=== PATIENT | female | born 1980 | race Two or more races ===

== ENCOUNTER 2017-04-23 23:47 | Emergency (ER) | payer SELFPAY ==
[2017-04-24 01:46] LABS: Add Diff/Slide Review? Slide Review Added; Comments Flag Yes; Hematocrit 40 % (35-47); Hemoglobin 12.3 g/dl (12.0-16.0); Mean Corpuscular HGB Conc 31 g/dl (31-36); Mean Corpuscular Hemoglobin 21 pg (27-31); Mean Corpuscular Volume 67 fL (80-97); Mean Platelet Volume 9 um3 (7.4-10.4); Red Blood Count 5.95 10^6/ul (4.0-5.4); Red Cell Distribution Width 14 % (10.5-15); White Blood Count 5.5 10^3/ul (3.5-10.8)
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
[2017-04-24 02:20] LABS: Acetaminophen < 15 mcg/mL; Alcohol < 10 mg/dL (<10); Lithium < 0.10 mmol/L (0.6-1.2); Salicylate < 2.50 mg/dL (<30); Valproic Acid < 13.0 mcg/mL (50-100)
[2017-04-24 02:22] LABS: Microcytosis 2+
[2017-04-24 02:23] LABS: ALT 16 U/L (7-52); AST 20 U/L (13-39); Albumin 4.1 g/dL (3.2-5.2); Alkaline Phosphatase 42 U/L (34-104); Anion Gap 5 mmol/L (2-11); BUN/Creatinine Ratio 12.5 (8-20); Blood Urea Nitrogen 9 mg/dL (6-24); CO2 Carbon Dioxide 30 mmol/L (22-32); Chloride 101 mmol/L (101-111); EGFR African American 116.6 (>60); EGFR Non-African American 90.7 (>60); Glucose 88 mg/dL (70-100); Hypochromasia 1+; Platelet Morphology Large; Potassium 3.4 mmol/L (3.5-5.0); Sodium 136 mmol/L (133-145); Total Protein 7.1 g/dL (6.4-8.9)
[2017-04-24 02:24] LABS: Add Path Review? YES
[2017-04-24 03:41] LABS: Uric Acid 2.7 mg/dL (2.3-6.6)
[2017-04-24 08:06] LABS: Urine Bilirubin Negative (Negative); Urine Glucose Negative (Negative); Urine Nitrite Negative (Negative)
--- NOTE | 2017-04-24 08:15 | RAD ---
HISTORY: Right great toe pain COMPARISONS: None VIEWS: 3, Frontal, lateral, and oblique views of the first digit of the right foot FINDINGS: BONE DENSITY: Normal. BONES: There is no displaced fracture. JOINTS: There is no arthropathy. ALIGNMENT: There is no dislocation. SOFT TISSUES: Unremarkable. OTHER FINDINGS: None. IMPRESSION: NO ACUTE OSSEOUS INJURY. IF SYMPTOMS PERSIST, RECOMMEND REPEAT IMAGING.
[2017-04-24 08:40] LABS: Benzodiazepine Urine Screen None Detected (None Detect)
[2017-04-24] MEDS ORDERED: LORazepam INJ* 2 MG/ML 1 ML VIAL IV PUSH ONE (11:36)
[2017-04-24] MEDS ORDERED: Midazolam* 1 MG/ML 2 ML VIAL (2 MG) IV ONE (12:14)
[2017-04-24] MEDS ORDERED: Midazolam* 1 MG/ML 2 ML VIAL (2 MG) ONE (12:15)
--- NOTE | 2017-04-24 13:09 | RAD ---
Indication: Altered mental status. Comparison: No relevant prior exams available on the [facility] PACS for comparison. Technique: Noncontrast CT vertex of skull through foramen magnum. Report: The sulci, ventricles, and basal cisterns are normal for age. Barcenas matter white matter differentiation is preserved without evidence for edema. No intra or extra axial hemorrhage, mass, or fluid collection detected. Unremarkable visualized orbital contents. Unremarkable calvarium and skull base. Small nodule at the RIGHT medial para midline posterior scalp with subtle foci of calcification likely represents a sebaceous cyst. The visualized paranasal sinuses and mastoid air spaces are clear. IMPRESSION: Negative unenhanced CT of the brain.
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
[2017-04-24 17:45] VITALS: BP 99/70
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
--- NOTE | 2017-04-25 16:23 | ED ---
Channing Luo Angela, scribed for Alejandro Pickens MD on 04/24/17 at 0927 . Progress - Progress Note Progress Note: This pt was signed out at shift change, pending disposition, awaiting neurology consult. On re-evaluation at 0915, pt states she is feeling fine. 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 Physical Exam: Vital Signs Reviewed: Yes Appearance: Positive: No Pain Distress, Well-Nourished Skin: Positive: Warm, Dry - multiple areas of ecchymosis over LE's (anterior and posterior aspect) - no edema, NTTP - no palpable FB's; no track boone nor areas of picking or scratching observed Head/Face: Positive: Normal Head/Face Inspection, Scalp - 3mm area of firm, well defined nodular mass along posterior scalp - no erythema, no bogginess, no ecchymosis, no overlying abrasion - NTTP (may be epidermal cyst?) Eyes: Positive: Normal, EOMI, Conjunctiva Clear ENT: Positive: Hearing grossly normal, Pharyngeal erythema - mucosa moist. Negative: Nasal congestion, Nasal drainage, Trismus, Muffled/hoarse voice Dental: Positive: Other - partially edentulous Neck: Positive: Supple Respiratory/Lung Sounds: Positive: Clear to Auscultation, Breath Sounds Present. Negative: Rales, Rhonchi, Wheezes Cardiovascular: Positive: Normal, RRR, Pulses are Symmetrical in both Upper and Lower Extremities, S1, S2. Negative: Murmur, Rub, Leg Edema Left, Leg Edema Right Abdomen Description: Positive: Nontender, Soft Bowel Sounds: Positive: Present Musculoskeletal: Positive: Other - skewed d/t Cleves's Chorea Neurological: Positive: CN Intact II-III, Other - pt has persistent rhythmic movements of UE's and LE's as well as core when in a dependent position - difficulty remaining still; oriented to person - unclear about orientation to place and time as she's vague when aswering specific questions - this could be that she's withholding information for personal gain or she genuinely does not have the capacity to recognize/recall this information at this time; her gait is also arrhythmic however she is able to coordinate herself to ambulate down the to and back - limbs do not appear weightless Psychiatric: Positive: Other - calm, cooperative, pleasant; does not appear to have FB implanted in superficial skin area as she mentioned during HPI - unsure if this concern is real or a delusion but feel the latter is most true; some answers pt provides are vague 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 - Results/Orders Results/Orders: Brain CT, per radiologist: IMPRESSION: Negative unenhanced CT of the brain. ED physician has reviewed this radiology report and agrees. Re-Evaluation - Re-Evaluation First Eval Re-Evaluation Time: 09:15 Comment: Pt notes she feels fine. Second Eval Re-Evaluation Time: 10:00 Comment: Pt is currently working on her computer. Third Eval Re-Evaluation Time: 11:00 Comment: Pt is resting with involuntary movements. Fourth Eval Re-Evaluation Time: 12:00 Comment: Pt is still resting with involuntary movements. Fifth Eval Re-Evaluation Time: 13:00 Comment: The pt was obtunded secondary to medication for sedation. Sixth + Eval Re-Evaluation Time: 15:18 Comment: Pt is having an agitation episode. 7th eval Re-Evaluation Time: 16:40 Comment: Dr. Ott saw and examined the pt. The pt is back to baseline. He spoke with the pt's father, who reported this is her baseline. Father reports the pt is psychotic, bipolar, and not adhering to her medications. Dr. Ott is willing to admit the pt but the pt refuses. At this point, I will page the psychiatrist to do a mental health evaluation. 8th eval Re-Evaluation Time: 17:14 Comment: Dr. López came to the ED to evaluate the pt. He recommends the pt should be discharged home as there are no psychiatric component for involuntary admission. Course/Dx - Course Course Of Treatment: This pt was signed out at shift change, pending disposition , awaiting neurology consult. I did multiple re-evaluations on the pt. Dr. Ott saw and examined the pt. The pt is back to baseline. He spoke with the pt 's father, who reported this is her baseline. Father reports the pt is psychotic , bipolar, and not adhering to her medications. Dr. Ott is willing to admit the pt but the pt refuses. At this point, I will page the psychiatrist to do a mental health evaluation. Dr. López came to the ED to evaluate the pt. He recommends the pt should be discharged home as there are no psychiatric component for involuntary admission. 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 - Diagnoses Provider Diagnoses: Cleves's chorea - Provider Notifications Discussed Care Of Patient With: Dylan Renee Time Discussed With Above Provider: 11:35 Instructed by Provider To: Other - I discussed the case with Dr. Renee. He came and consulted with the pt. He reports it is a bizarre complaint. Dr. Renee thinks it is a psychiatric complaint and the pt doesn't need an MRI. He recommends a head CT and beta hcg. [16:40] I spoke with Dr. Ott who is willing to admit the pt but the pt refuses. [16:48] I paged Dr. López to do a mental health evaluation. The documentation as recorded by the Channing martinez Angela accurately reflects the service I personally performed and the decisions made by me, Alejandro Pickens MD.
== END 2017-04-24 17:43 ==
LOC: ED 23:47
DX: F22 Delusional disorders (principal); G10 Huntington's disease; M79.674 Pain in right toe(s); Z32.02 Encounter for pregnancy test, result negative; Z04.8 Encounter for examination and observation for other specified reasons; R23.3 Spontaneous ecchymoses; R22.0 Localized swelling, mass and lump, head; D64.9 Anemia, unspecified
CPT/HCPCS: 36415; 70450; 80053; 80164; 80178; 80307; 80320; 80329; 81003; 84443; 84550; 84702; 85025; 85060; 96374; 96375; 99285; G0480; J2060; J2250

== ENCOUNTER → 2017-04-24 23:02 | Emergency (ER) | payer SELFPAY ==
--- NOTE | 2017-04-25 09:09 | ED ---
Niles Lou Rebecca, scribed for Ramesh Saldivar MD on 04/24/17 at 2359 . Complex/Multi-Sys Presentation - HPI Summary HPI Summary: Pt is a 36 y/o F BIBA accompanied by police as a 2209 who presents to ED with no complaints. The pt was D/C from [facility] earlier today and states that she had gone home and went to bed. Reports that she went to the bathroom and "then the mental health associate were like knocking" and asked if she was doing drugs or anything illegal, which she denied. Pt states "I do not think I need to be here again." Pt reports she is visiting the area from [place], but she has friends throughout the area. PMHx Maile's chorea. - History Of Current Complaint Chief Complaint: EDSubstanceAbuse Hx Obtained From: Patient Onset/Duration: Resolved Severity Currently: None Location: Negative Aggravating Factor(s): Nothing Alleviating Factor(s): Nothing Associated Signs And Symptoms: Positive: Other - No complaints - Allergies/Home Medications Allergies/Adverse Reactions: Allergies Allergy/AdvReac Type Severity Reaction Status Date / Time No Known Allergies Allergy Verified 04/24/17 00:43 PMH/Surg Hx/FS Hx/Imm Hx Endocrine/Hematology History: Reports: Hx Anemia - not taking supplements at this time Denies: Hx Anticoagulant Therapy, Hx Blood Disorders Cardiovascular History: Denies: Hx Congenital Heart Disease, Hx Hypertension Respiratory History: Denies: Hx Asthma Sensory History: Reports: Hx Contacts or Glasses Opthamlomology History: Reports: Hx Contacts or Glasses Neurological History: Reports: Other Neuro Impairments/Disorders - [place]'s Chorea Psychiatric History: Reports: Hx Post Traumatic Stress Disorder - no meds, no counseling Infectious Disease History: Reports: History Other Infectious Disease - HPV Denies: Traveled Outside the [place] in Last 30 Days - Family History Known Family History: Positive: Other - mom- [place]ot's chorea - Social History Alcohol Use: None Hx Substance Use: Yes - nothing currently Substance Use Type: Reports: Cocaine Hx Tobacco Use: No Smoking Status (MU): Never Smoked Tobacco Review of Systems Constitutional: Negative Eyes: Negative ENT: Negative Cardiovascular: Negative Respiratory: Negative Gastrointestinal: Negative Genitourinary: Negative Musculoskeletal: Negative Skin: Negative Neurological: Negative Positive: Other - No complaints All Other Systems Reviewed And Are Negative: Yes Physical Exam - Summary Physical Exam Summary: Appearance: Well-appearing, Well-nourished, NAD Skin: Warm Eyes: Normal ENT: Normal Neck: Supple, nontender Respiratory: Clear to auscultation Cardiovascular: Normal Abdomen: Soft, nontender Bowel: Present Musculoskeletal: Normal, Strength/ROM Intact Neurological: A&Ox3, Generalized choreal movements Psychiatric: Normal Triage Information Reviewed: Yes Vital Signs Reviewed: Yes - [place] Coma Scale Coma Scale Total: 15 Complex Multi-Symp Course/Dx Course Of Treatment: in no acute distress, awaiting social work consultation. Assessment/Plan: pt was brought in by police yesterday, neurology and mental health consultations appreciated, pt was discharged and brought in today again by police. No changes in mental status. Pt has no complaints, denies any SI/HI or substance use. Pt has exhibited similar behavior in the past according to her family. - Diagnoses Provider Diagnoses: Huntingtons chorea Discharge - Discharge Plan Condition: Stable Disposition: HOME Referrals: Non Staff,Doctor [Primary Care Provider] - Karen WHATLEY,Leon [Medical Doctor] - Additional Instructions: PLEASE MAKE AN APPOINTMENT FIRST THING IN THE MORNING TO BE SEEN BY A NEUROLOGIST WITHIN 1 WEEK PLEASE RETURN TO THE EMERGENCY ROOM IF YOU HAVE ANY WORSENING OR CONCERNING SYMPTOMS The documentation as recorded by the Niles martinez Rebecca accurately reflects the service I personally performed and the decisions made by me, Ramesh Saldivar MD.
[2017-04-25 10:14] VITALS: BP 133/97
== END | disposition home or self-care (01) ==
LOC: ED 23:02
DX: G10 Huntington's disease (principal)
CPT/HCPCS: 99283

== ENCOUNTER 2017-04-25 16:15 | Emergency (ER) | payer SELFPAY ==
[2017-04-25 16:52] VITALS: BP 126/50
--- NOTE | 2017-04-25 20:59 | ED ---
Progress - Progress Note Progress Note: in no acute distress, alert and oriented, has decision making capacity, I spoke with social services aide who agrees with plan for discharge Course/Dx - Diagnoses Provider Diagnoses: Routine medical exam
--- NOTE | 2017-04-26 19:01 | ED ---
Parvin Luo Thomas, scribed for Alejandro Pickens MD on 04/25/17 at 1710 . Psychiatric Complaint - HPI Summary HPI Summary: The pt is a 36 y/o F BIB police to the emergency department. She was a patient at [facility] ED twice in the last two days. She says that her time at [facility] ED has been a complete waste of her time because every time she is discharged, people call the police and she is forced to return to the ED. She says this is myself as I ve been for the last couple of years. Today, she was brought into the ED because she was found at [facility] wearing only a bikini. However, per EMS documentation, she was naked from the waist up. Previous to that, the patient was at the [employer] for the [employer]. She was also told to go to a house of people with disabilities, but due to needing wifi, she did not go. Pt denies SI and HI. She wants to leave the ED. - History Of Current Complaint Chief Complaint: EDMentalHealth Time Seen by Provider: 04/25/17 16:36 Hx Obtained From: Patient, EMS - BIB police Onset/Duration: Still Present Timing: Constant Aggravating Factor(s): Other - Unknown Alleviating Factor(s): Other - Unknown Has Suicidal: Denies: Thoughts Has Homicidal: Denies: Thoughts Recent Stressor(s): Unknown - Allergies/Home Medications Allergies/Adverse Reactions: Allergies Allergy/AdvReac Type Severity Reaction Status Date / Time No Known Allergies Allergy Verified 04/24/17 00:43 PMH/Surg Hx/FS Hx/Imm Hx Previously Healthy: No Endocrine/Hematology History: Reports: Hx Anemia - not taking supplements at this time Denies: Hx Anticoagulant Therapy, Hx Blood Disorders Cardiovascular History: Denies: Hx Congenital Heart Disease, Hx Hypertension Respiratory History: Denies: Hx Asthma Sensory History: Reports: Hx Contacts or Glasses Opthamlomology History: Reports: Hx Contacts or Glasses Neurological History: Reports: Other Neuro Impairments/Disorders - [place]'s Chorea Psychiatric History: Reports: Hx Post Traumatic Stress Disorder - no meds, no counseling Infectious Disease History: No Infectious Disease History: Reports: History Other Infectious Disease - HPV Denies: Traveled Outside the [place] in Last 30 Days - Family History Known Family History: Positive: Other - mom- [place]'s chorea - Social History Alcohol Use: None Hx Substance Use: Yes - nothing currently Substance Use Type: Reports: Cocaine Hx Tobacco Use: No Smoking Status (MU): Never Smoked Tobacco Review of Systems Negative: Fever Psychological: Other - NEGATIVE: SI, HI All Other Systems Reviewed And Are Negative: Yes Physical Exam - Summary Physical Exam Summary: Vital Signs Reviewed: Yes Appearance: Positive: No Pain Distress, Well-Nourished Skin: Positive: Warm, Dry - multiple areas of ecchymosis over LE's (anterior and posterior aspect) - no edema, NTTP - no palpable FB's; no track boone nor areas of picking or scratching observed Head/Face: Positive: Normal Head/Face Inspection, Scalp - 3mm area of firm, well defined nodular mass along posterior scalp - no erythema, no bogginess, no ecchymosis, no overlying abrasion - NTTP (may be epidermal cyst?) Eyes: Positive: Normal, EOMI, Conjunctiva Clear ENT: Positive: Hearing grossly normal, Pharyngeal erythema - mucosa moist. Negative: Nasal congestion, Nasal drainage, Trismus, Muffled/hoarse voice Dental: Positive: Other - partially edentulous Neck: Positive: Supple Respiratory/Lung Sounds: Positive: Clear to Auscultation, Breath Sounds Present. Negative: Rales, Rhonchi, Wheezes Cardiovascular: Positive: Normal, RRR, Pulses are Symmetrical in both Upper and Lower Extremities, S1, S2. Negative: Murmur, Rub, Leg Edema Left, Leg Edema Right Abdomen Description: Positive: Nontender, Soft Bowel Sounds: Positive: Present Musculoskeletal: Positive: Other - skewed d/t Kendrick's Chorea Neurological: Positive: CN Intact II-III, Other - pt has persistent rhythmic movements of UE's and LE's as well as core when in a dependent position - difficulty remaining still; oriented to person - unclear about orientation to place and time as she's vague when aswering specific questions - this could be that she's withholding information for personal gain or she genuinely does not have the capacity to recognize/recall this information at this time; her gait is also arrhythmic however she is able to coordinate herself to ambulate down the to and back - limbs do not appear weightless Psychiatric: Positive: Other - calm, cooperative, pleasant; does not appear to have FB implanted in superficial skin area as she mentioned during HPI - unsure if this concern is real or a delusion but feel the latter is most true; some answers pt provides are vague Triage Information Reviewed: Yes Vital Signs On Initial Exam: Initial Vitals Temp Pulse Resp BP Pulse Ox 98.1 F 91 16 126/50 99 04/25/17 16:20 04/25/17 16:20 04/25/17 16:20 04/25/17 16:20 04/25/17 16:20 Vital Signs Reviewed: Yes - [place] Coma Scale Coma Scale Total: 15 Diagnostics - Vital Signs Vital Signs Temp Pulse Resp BP Pulse Ox 04/25/17 16:20 98.1 F 91 16 126/50 99 - Laboratory Lab Statement: Any lab studies that have been ordered have been reviewed, and results considered in the medical decision making process. Course/Dx - Course Assessment/Plan: The pt is a 36 y/o F BIB police to the emergency department. She was a patient at [facility] twice in the last two days. She says that her time at [facility] has been a complete waste of her time because every time she is discharged, people call the police and she is forced to return to the ED. She says this is myself as Jenny been for the last couple of years. Today, she was brought into the ED because she was found at [facility] wearing only a bikini. However, per EMS documentation, she was naked from the waist up. Previous to that, the [facility] [place] [facility] [place] [employer]. She was also told to go to a house of people with disabilities, but due to needing wifi, she did not go. Pt denies SI and HI. She wants to leave the ED. The patient is at her baseline. I have seen her in the last two days and she is still alert and oriented x3 with normal cognition. However, the patient has involuntary movements secondary to Huntingtons chorea. The patient has normal thought processes. She is cognitively intact and responds to questions appropriately. Therefore, she will be discharged home with follow up by her primary care provider. Social work is consulting with her concerning alternatives where the patient can stay. The patient will be signed out to Dr. Saldivar pending the social work consult. - Differential Dx/Clinical Impression Provider Diagnosis: Routine medical exam Discharge - Discharge Plan Condition: Stable Disposition: OTHER Discharge Disposition Comment: Sign out to [facility] pending social work consult. Referrals: [facility] PHYSICIAN REFERRAL [Outside] Additional Instructions: Use the [facility] Physician Referral Service to find a primary care physician and make an appointment. The documentation as recorded by the Parvin martinez Thomas accurately reflects the service I personally performed and the decisions made by me, Alejandro Pickens MD.
== END 2017-04-26 12:40 ==
LOC: ED 16:15
DX: Z00.00 Encounter for general adult medical examination without abnormal findings (principal)
CPT/HCPCS: 99282

== ENCOUNTER 2017-04-30 01:48 | Emergency (ER) | payer SELFPAY ==
[2017-04-30 01:50] VITALS: BP 116/64
--- NOTE | 2017-04-30 02:21 | ED ---
Lower Extremity - HPI Summary HPI Summary: 36F presents with left great toe pain today. She states she woke up with the pain. She states might be splinter in area but no injury. Does not remember stepping on anything. no edema or erythema to joint. no history of gout. no fever. is not diabetic. no wound to area. has not tried anything for pain. pain is 3/10. states hurts to walk on area. - History of Current Complaint Chief Complaint: EDExtremityLower Stated Complaint: TOE PAIN Time Seen by Provider: 04/30/17 01:51 Pain Intensity: 6 - Allergies/Home Medications Allergies/Adverse Reactions: Allergies Allergy/AdvReac Type Severity Reaction Status Date / Time No Known Allergies Allergy Verified 04/24/17 00:43 PMH/Surg Hx/FS Hx/Imm Hx Endocrine/Hematology History: Reports: Hx Anemia - not taking supplements at this time Denies: Hx Anticoagulant Therapy, Hx Blood Disorders Cardiovascular History: Denies: Hx Congenital Heart Disease, Hx Hypertension Respiratory History: Denies: Hx Asthma Sensory History: Reports: Hx Contacts or Glasses Opthamlomology History: Reports: Hx Contacts or Glasses Neurological History: Reports: Other Neuro Impairments/Disorders - [place]'s Chorea Psychiatric History: Reports: Hx Post Traumatic Stress Disorder - no meds, no counseling Infectious Disease History: No Infectious Disease History: Reports: History Other Infectious Disease - HPV Denies: Traveled Outside the [place] in Last 30 Days - Family History Known Family History: Positive: Other - mom- Kendrick's chorea - Social History Alcohol Use: None Hx Substance Use: Yes - nothing currently Substance Use Type: Reports: Cocaine Hx Tobacco Use: No Smoking Status (MU): Never Smoked Tobacco Review of Systems Negative: Fever Negative: Chest Pain Negative: Shortness Of Breath Positive: Myalgia - left toe pain All Other Systems Reviewed And Are Negative: Yes Physical Exam Triage Information Reviewed: Yes Vital Signs On Initial Exam: Initial Vitals Temp Pulse Resp BP Pulse Ox 98 F 78 16 116/64 100 04/30/17 01:48 04/30/17 01:48 04/30/17 01:48 04/30/17 01:48 04/30/17 01:48 Vital Signs Reviewed: Yes Appearance: Positive: Well-Appearing Skin: Positive: Warm, Dry, Other - no erythema or wound seen Head/Face: Positive: Normal Head/Face Inspection Eyes: Positive: Normal, Conjunctiva Clear Respiratory/Lung Sounds: Positive: Clear to Auscultation, Breath Sounds Present Cardiovascular: Positive: Normal, RRR Musculoskeletal: Positive: Strength/ROM Intact - left great toe, Other - capillary refill<2 secs, tender over MTP joint with no edmea Neurological: Positive: Normal Psychiatric: Positive: Normal - [place] Coma Scale Coma Scale Total: 15 Diagnostics - Vital Signs Vital Signs Temp Pulse Resp BP Pulse Ox 04/30/17 01:48 98 F 78 16 116/64 100 - Laboratory Lab Statement: Any lab studies that have been ordered have been reviewed, and results considered in the medical decision making process. Lower Extremity Course/Dx - Course Course Of Treatment: 36F presents with left great toe pain today. She states she woke up with the pain. She states might be splinter in area but no injury. Does not remember stepping on anything. no edema or erythema to joint. no history of gout. no fever. is not diabetic. no wound to area. has not tried anything for pain. pain is 3/10. states hurts to walk on area. neurovascular intact. no splinter entrance wound seen. xray normal. will treat with RICE. patient understand and agrees with plan. - Diagnoses Differential Diagnosis/HQI/PQRI: Positive: Foreign Body, Fracture (Closed), Gout , Sprain Provider Diagnoses: Toe pain, left Discharge - Discharge Plan Condition: Good Disposition: HOME Patient Education Materials: Arthralgia (ED) Referrals: Non Staff,Doctor [Primary Care Provider] - Additional Instructions: Take Tylenol or ibuprofen every 6 hours as needed for pain Apply ice, rest, elevate Follow up with primary care physician within 5 days Return to ED if develop any new or worsening symptoms
--- NOTE | 2017-04-30 07:57 | RAD ---
HISTORY: Pain, penetrating trauma COMPARISONS: None VIEWS: 3, Frontal, lateral, and oblique views of the first digit of the left foot FINDINGS: BONE DENSITY: Normal. BONES: There is no displaced fracture. JOINTS: There is no arthropathy. ALIGNMENT: There is no dislocation. SOFT TISSUES: Unremarkable. OTHER FINDINGS: There is no radiopaque foreign body. IMPRESSION: NO ACUTE OSSEOUS INJURY. NO RADIOPAQUE FOREIGN BODY. IF SYMPTOMS PERSIST, RECOMMEND REPEAT IMAGING.
== END 2017-04-30 02:24 | disposition home or self-care (01) ==
LOC: ED 01:48
DX: M79.675 Pain in left toe(s) (principal)
CPT/HCPCS: 99281